=== PATIENT | male | born 1955 | race Caucasian/White ===

== ENCOUNTER → 2019-06-02 | Outpatient (CLI) | payer MEDICARE | LOC: GMAE 14:50 | PROVIDERS: ATTEND Family Medicine | DX: R53.83 Other fatigue (principal); Z79.899 Other long term (current) drug therapy ==

== ENCOUNTER → 2019-07-18 | Outpatient (CLI) | payer MEDICARE | LOC: GMAE 10:37 | PROVIDERS: ATTEND Family Medicine | DX: Z12.5 Encounter for screening for malignant neoplasm of prostate (principal); Z79.899 Other long term (current) drug therapy; E78.2 Mixed hyperlipidemia | CPT/HCPCS: 84439; 84443; 84481; G0103 ==

== ENCOUNTER → 2020-03-29 | Outpatient (CLI) | payer MEDICARE | LOC: GMAJ 16:43 | PROVIDERS: ATTEND Family Medicine | DX: D50.9 Iron deficiency anemia, unspecified (principal); Z79.899 Other long term (current) drug therapy ==

== ENCOUNTER 2020-04-05 05:04 | Day surgery (SDC) | payer MEDICARE ==
[2020-04-05] MEDS ORDERED: LACTATED RINGERS 1,000 ML ONE (06:29)
[2020-04-05] MEDS ORDERED: PROPOFOL 200 MG/20 ML VIAL IV ONE (07:00)
[2020-04-05] MEDS ORDERED: LIDOCAINE 1% 10 ML VIAL INJ ONE (07:00)
[2020-04-05 12:37] VITALS: BP 125/73; TEMP 96.8; O2SAT 99
--- NOTE | 2020-04-05 13:11 | OP ---
DATE OF PROCEDURE: 04/05/20 PREOPERATIVE DIAGNOSIS: 1. Anemia. POSTOPERATIVE DIAGNOSIS: 1. Colon tumor at approximately 40 cm. PROCEDURE: 1. Colonoscopy with polyp excision of one polyp at 30 cm, snare excision of polyp at 4 cm and forceps biopsy of a large mass at 40 to 45 cm. SURGEON: Jeffery Jimenez MD ANESTHESIA: General. FINDINGS: The lesion was obstructing the lumen at approximately 40 cm. We were able to safely get around it. It was large, mucinous, lobulated. Once we got around, we got all the way to the cecum as identified be appendiceal orifice. PROCEDURE: General anesthesia was induced in the lateral position. Digital rectal exam was normal. The colonoscope was inserted without difficulty. There was some poor prep distally, but this cleared up. We noticed a couple of specs of blood, irrigated and we got to a mass. Photos were taken. It was mucinous, fleshy appearing. I could not see the base. We gently were able to get past it to normal lumen. Just prior to this, there was a small polyp that had a reddened appearance on part of it. This was removed with forceps. It was about 30 cm. After we passed the tumor, we went all the way to the cecum and upon withdrawal, encountered the tumor again at approximately 45 cm. We took a biopsy. It was mostly fleshy and mucinous. We could not reliably know we got a lot of tissue, but then upon withdrawal, it was either addition of the primary tumor or a second lesion in the same area and we took more biopsy. Upon retroflexion, a polyp was seen just inside the introitus. It was on a stalk. This was taken with the snare. There were no complications. The patient will be taken to the Recovery Room pending pathology results. I will order a CT scan in the meantime as well as get cardiac clearance in anticipation of likely need for surgery depending on final pathology. #[id number] [facility]
== END 2020-04-05 12:25 | disposition home or self-care (01) ==
LOC: AMB 05:04
PROVIDERS: ATTEND Surgery
DX: D64.9 Anemia, unspecified (principal); K62.0 Anal polyp; K63.5 Polyp of colon; D12.6 Benign neoplasm of colon, unspecified; I25.10 Atherosclerotic heart disease of native coronary artery without angina pectoris; J45.909 Unspecified asthma, uncomplicated; Z95.5 Presence of coronary angioplasty implant and graft; Z87.19 Personal history of other diseases of the digestive system; Z95.810 Presence of automatic (implantable) cardiac defibrillator; Z79.02 Long term (current) use of antithrombotics/antiplatelets; Z79.82 Long term (current) use of aspirin; Z79.899 Other long term (current) drug therapy
CPT/HCPCS: 00811; 45380; 45385; 88305; J3490; J7120

== ENCOUNTER → 2020-04-09 | Outpatient (CLI) | payer MEDICARE ==
--- NOTE | 2020-04-09 11:42 | CT ---
EXAM DESCRIPTION: Abdomen/Pelvis w/Contrast CLINICAL HISTORY: 64 years Male, COLON MASS TECHNIQUE: This exam was performed according to our departmental dose-optimization program, which includes automated exposure control, adjustment of the mA and/or kV according to patient size and/or use of iterative reconstruction technique. COMPARISON: None at time of initial interpretation. FINDINGS: Small bilateral pleural effusions. Cholelithiasis. Portal vein is patent. The liver is unremarkable. No suspicious hepatic lesion. No biliary dilatation. The spleen, pancreas and adrenal glands are unremarkable. Bilateral renal cysts. Symmetric renal parenchymal enhancement. No hydronephrosis. No urolithiasis. Unremarkable bladder. Scattered colonic diverticula. There is segmental masslike mural thickening at the splenic flexure of the colon spanning a distance of 8 cm. No evidence of bowel obstruction. 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 Normal appendix. No retroperitoneal or pelvic adenopathy. No fluid collection. No free air. Normal caliber abdominal aorta. Mild atherosclerotic disease. No acute or suspicious osseous abnormality. Scattered degenerative changes present. IMPRESSION: 1. Segmental masslike mural thickening at the splenic flexure of the colon worrisome for malignancy. Recommend correlation with colonoscopy. 2. Small bilateral pleural effusions. Electronically signed by: Connor Anderson MD 04/09/2020 11:40 AM CDT
== END ==
LOC: CT 08:06
PROVIDERS: ATTEND Surgery
DX: K63.89 Other specified diseases of intestine (principal); J90 Pleural effusion, not elsewhere classified

== ENCOUNTER 2020-05-02 13:00 | Inpatient (IN) | payer MEDICARE ==
--- NOTE | 2020-04-27 16:20 | RAD ---
EXAM DESCRIPTION: Chest,2 Views CLINICAL HISTORY: 65 years Male, preop clearance COMPARISON: No recent comparison FINDINGS: 2 views/radiographs Heart size and pulmonary vessels are within normal limits. There is no pneumothorax or pleural effusion. The lungs are clear bilaterally. The soft tissues are unremarkable. No acute osseous findings. Left chest wall pacemaker. IMPRESSION: No acute cardiopulmonary abnormality. Electronically signed by: Connor Anderson MD 04/27/2020 4:18 PM [facility]
[~2020-05-02 13:00] MED LIST: BUPIVACAINE 0.5% W/EPI 30 ML VIAL INJ ONE; DEXAMETHASONE INJ 10 MG/ML VIAL ONE; ELECTROLYTE-A 1,000 ML IVS ONE; FAMOTIDINE INJ 10 MG/ML VIAL IV ONE; HYDROmorphone HCL INJ 2 MG/ML VIAL IV ONE; HYDROmorphone HCL INJ 2 MG/ML VIAL ONE; LACTATED RINGERS 1,000 ML ONE; LIDOCAINE 1% 10 ML VIAL INJ ONE; MAGNESIUM SULFATE INJ 1 GM/2 ML VIAL ONE; METOCLOPRAMIDE HCL INJ 10 MG/2 ML VIAL ONE; MIDAZOLAM INJ 2 MG/2 ML VIAL ONE; MORPHINE SULFATE INJ 10 MG/ML VIAL IV PRN; PROPOFOL 200 MG/20 ML VIAL IV ONE; ROCURONIUM BROMIDE 10 MG/ML VIAL ONE; SODIUM CHLORIDE 0.9% (FLUSH) 10 ML SYG ONE; SODIUM CHLORIDE 0.9% 250ML 250 ML ONE; SODIUM CHLORIDE 0.9% 50 ML VIAL ONE; SODIUM CHLORIDE 0.9% 500ML 500 ML ONE; SUGAMMADEX SODIUM 200 MG/2 ML VIAL IV ONE; ePHEDrine SULF 50 MG/ML ONE; fentaNYL CITRATE INJ 50 MCG/ML 2 ML AMP IV ONE; fentaNYL CITRATE INJ 50 MCG/ML 2 ML AMP ONE; fentaNYL CITRATE INJ 50 MCG/ML 5 ML AMP ONE
--- NOTE | 2020-05-02 15:09 | OP ---
DATE OF PROCEDURE: 05/02/20 PREOPERATIVE DIAGNOSIS: 1. Near obstructing colon mass near splenic flexure. POSTOPERATIVE DIAGNOSIS: 1. Near obstructing colon mass near splenic flexure. PROCEDURE: 1. Laparoscopic converted to open extended left colectomy, 2. Control of splenic bleeding. SURGEON: Jeffery Jimenez MD ANESTHESIA: General. FINDINGS: After laparoscopic exploration and mobilization, the tumor was large, almost softball size, fixed up in the splenic flexure, adherent to the spleen as well as desmoplastic reaction and multiple adhesions near the spleen. A 3 cm by approximately 3 cm deep laceration was noted in the spleen which was controlled with topical measures. ESTIMATED BLOOD LOSS: See report, 500 in canister plus labs. PLAN: Admit. INDICATION: As stated. The patient had a good prep with no sign of obstruction. It was delayed a little bit due to COVID, but he was able to prep adequately. PROCEDURE: The patient was brought to the Operative Suite in supine position. General anesthesia was induced. He was prepped and draped in sterile fashion. 0.5% Marcaine was used at the incision sites. While maintaining upward traction, a brian was made inferior to the umbilicus. The Veress needle was introduced. The abdomen was insufflated to an appropriate level of CO2 gas. A 12 mm trocar was placed followed by the camera. There was no evidence of bleeding or bowel injury. Two additional 5 mm ports were placed in the subxiphoid and right midabdomen. We then scanned the abdomen. The patient was positioned steep head up and to the left. We found multiple omental adhesions to the pelvis and ultimately found that the cecum and appendix were in the left lower quadrant. We freed up the white line of Toldt going up to the tumor. Our marking of the tumor site was identified at the splenic flexure and then with the adhesions down in the pelvis, it was difficult to get the omentum up and over to free if from the colon, but we did get a window into the lesser sac and freed up the transverse colon. When we got close to the mass, it was fixed and very immobile. At this point, it was determined we were unable to proceed laparoscopically. The patient was opened. The Bookwalter was placed. We examined the adhesions that were stuck. They indeed went down into the left lower quadrant. Three were freed off what we identified as the cecum, which was adherent to the sigmoid colon. Once this was freed up, the appendix appeared normal. We were able to mobilize that over to the right side. We then continued our dissection at the white line of Toldt down into the sigmoid to mobilize the descending colon. We were then able to take the omentum off of the distal transverse colon and mobilize that up to the mass. Again, it was fixed inferiorly and posteriorly. We saw the spleen and were able to dissect through the adhesions getting the colon off the superior pole of the spleen with minimal oozing. To aid in our dissection, we then transected the colon distally near the dominant left vessel that was palpated and then got behind the colon, lifting up, going over to the mass and then conscious that we were stuck there in the spleen, we took a lot of care in this area and with the size of the mass, we carefully dissected off its posterior adhesions, bringing it down off the splenic flexure area and had it mobilized to the midabdomen. At this time, there was oozing from the spleen. After suction and packing it off for some time, addressing the colon and getting the proximal dissection near the middle colic vessel and transected the colon here and took the mesenteric vessels with the vessel sealer and removed the specimen, again, examined the spleen and there was about a 3 cm and approximately 3 cm deep laceration near the superior pole in the mid posterior body. There was blood in the area. Ultimately, the oozing did lead to 500 mL in the canister, but there was no brisk arterial bleeding. Fibrillar was placed in the retroperitoneal area where there was some oozing from the dissection of the mass as well as Fibrillar and some topical on the spleen where the laceration was. We then packed it off with laps and held direct pressure for at least 10 minutes. Upon retrieving those laps, there was still some oozing from a portion that did not have a Fibrillar on it. We suctioned. It did not appear to be brisk, so more Fibrillar was placed in this area and again it was packed off and observed. On the final removal of the packing, there was no welling of blood. We had suctioned some clots from above the spleen from the blood previously, but the Fibrillar was dark. A portion of it was still white and as we observed it for a while, there was no evidence of ongoing significant bleeding. Confident that the spleen was adequately controlled, we then went down and made our anastomosis. It was a [id number]. The stapled corners, antimesenteric were held up, were cut off. The Endo-ISIDRO-55 was used, placed in and fired, making the anastomosis. The internal was examined. There was no evidence of bleeding. It was then closed transversely, staggering the staple lines with a TA-60. We then closed the mesenteric defect with a running 3-0 Vicryl and upon the final examination of the spleen removing the 3 laps that had packed it, we again noted no ongoing bleeding and really no significant oozing. The Fibrillar was dark, but dry. At this point, lap and instrument counts were correct. We closed with a running 0 PDS suture. Given the blood loss and the initial hemoglobin of 10, he was transfused 1 unit. Fascia was closed. The skin was closed with staple and dressing applied. He was then awakened and taken to Recovery in stable condition to be observed. We will get serial hematocrits. #[id number] cc: Jeffery Cheatham MD [facility]
[2020-05-02] MEDS: MORPHINE SULFATE INJ 10 MG/ML VIAL IV PRN ×3 (16:06→21:32)
[2020-05-02] MEDS: cefOXitin SODIUM 1 GM in SODIUM CHL 0.9% 50ML MIN-BAG+ 50 ML IVPB SCH ×2 (16:07→23:54)
[2020-05-02] MEDS: KCL 20MEQ/D5 1/2NS 1,000 ML IVS PRN ×2 (16:07→23:54)
--- NOTE | 2020-05-02 17:54 | PN ---
DATE: 05/02/20 TIME: 5:43 PM FOLLOWUP POSTOPERATIVE SUBJECTIVE: The patient is post extended left colectomy with control of splenic bleeding. We are here following up hemoglobin and hematocrit. He got one unit of blood intraoperatively. Currently, he is doing well. OBJECTIVE: Heart rate is in the 60s. Blood pressure 110s/70s. She is having adequate urine output. LABORATORY: Followup hemoglobin 9.9. PLAN: At this point, the hemoglobin is stable. We still are anticipating some hemoglobin drop due to fluid shifts, but at this point, he looks very stable and there is no evidence of ongoing bleeding on exam. His abdomen is mildly tense with slight guarding from his surgery, but otherwise not distended. The wound is dry. Overall, it looks like he is doing well. We will continue serial H&Hs. #[id number] [facility]
[2020-05-02] MEDS ORDERED: ATORVASTATIN 20 MG TAB PO ONE (19:27)
[2020-05-02] MEDS ORDERED: CARVEDILOL 3.125 MG TAB ONE (19:27)
[2020-05-02] MEDS: ONDANSETRON INJ 4 MG/2 ML VIAL IV PRN (19:36)
[2020-05-02] MEDS: CARVEDILOL 3.125 MG TAB PO SCH (20:42)
[2020-05-02] MEDS: ATORVASTATIN 20 MG TAB PO SCH (20:42)
[2020-05-03] MEDS: MORPHINE SULFATE INJ 10 MG/ML VIAL IV PRN ×6 (02:10→22:01)
[2020-05-03] MEDS ORDERED: CETIRIZINE HCL 10 MG TAB PO ONE (07:48)
[2020-05-03] MEDS ORDERED: AMIODARONE HCL 200 MG TAB ONE (07:48)
[2020-05-03] MEDS ORDERED: LOSARTAN POTASSIUM 25 MG TAB ONE (07:49)
[2020-05-03] MEDS: cefOXitin SODIUM 1 GM in SODIUM CHL 0.9% 50ML MIN-BAG+ 50 ML IVPB SCH (08:03)
--- NOTE | 2020-05-03 08:22 | CONS ---
SUPERVISING PHYSICIAN: Brandon Mckeon MD DATE OF CONSULTATION: 05/02/20 REASON FOR CONSULTATION: Postoperative colectomy. HISTORY OF PRESENT ILLNESS: This is a 65-year-old male patient who had a colon mass that was almost obstructing the right side of his abdomen. He actually requested Dr. Jimenez for operative intervention for a colectomy. He was admitted to the hospital today for laparoscopic colectomy to be performed by Dr. Jimenez. Intraoperatively, the mass was found to be so extensive that it had been converted to an extensive open colectomy. There was also some splenic bleeding intraoperatively and he received a unit of blood. He was admitted to the Floor postoperatively. PAST MEDICAL HISTORY: 1. Seasonal allergies. 2. Asthma. 3. Myocardial infarction x1 in 2016. 4. Coronary artery disease with stent placement. PAST SURGICAL HISTORY: 1. Coronary artery stent placement. 2. Colon resection. 3. Left knee surgery. OUTPATIENT MEDICATIONS: 1. Aspirin. 2. Ferrous gluconate. 3. Multivitamins with minerals. 4. Albuterol. 5. Amiodarone. 6. Atorvastatin. 7. Carvedilol. 8. Cetirizine. 9. Breo Ellipta. 10. Losartan. ALLERGIES: CELEXA, PENICILLIN. FAMILY HISTORY: Coronary artery disease. SOCIAL HISTORY: He previously smoked cigars and quit in 2014. He denies any ETOH or illicit drug use. REVIEW OF SYSTEMS: Negative except as per history of present illness. PHYSICAL EXAMINATION: VITAL SIGNS: Temperature 97.6, heart rate 60, blood pressure 89/64. It is now up to 105/69. Respiratory rate 15, O2 saturation 98% on 2 liters nasal cannula. GENERAL: This is a 65-year-old male patient who is lying in his hospital bed. He is in no acute distress. He is still quite lethargic postoperatively. NECK: Supple without mass. RESPIRATORY: Essentially clear to auscultation bilaterally. CARDIOVASCULAR: Regular rate and rhythm. GASTROINTESTINAL: He has an abdominal dressing in place. EXTREMITIES: No cyanosis, clubbing or edema. NEUROLOGIC: He is lethargic, but he answers questions appropriately and is oriented times three. SKIN: Warm and dry. LABORATORY: WBCs 10.6, hemoglobin 10.2, hematocrit 31.8 prior to surgery. Immediately postoperatively, hemoglobin was 9.2 and hematocrit 29.2 after one unit of blood and his 4 o'clock H&H was 9.9 and 31.4. Sodium 134, potassium 3.9, chloride 100 RADIOLOGY: Chest x-ray shows no acute cardiopulmonary abnormality. OPERATIVE REPORTS: Per the EMR. IMPRESSION: 1. Near obstructing colon mass status post laparoscopic converted to open extended left colectomy with control of splenic bleeding, performed by Jeffery Jimenez MD, postoperative day #0. 2. Asthma without exacerbation. 3. Coronary artery disease with stent placement in the past. 4. Myocardial infarction x1 in 2016. 5. Seasonal allergies. PLAN: We will continue present supportive care. Operative issues will be per Dr. Jeffery Jimenez, general surgeon. We will follow his recommendations. We will verify his home medications and follow his serial H&Hs. He does have one unit of blood that has been typed and crossed in the lab if needed. I encouraged him to get up in the hallways soon as Dr. Jimenez consents. Encourage good pulmonary hygiene. #[id number] [facility]
[2020-05-03] MEDS: AMIODARONE HCL 200 MG TAB PO SCH (08:47)
[2020-05-03] MEDS: CETIRIZINE HCL 10 MG TAB PO SCH (08:48)
[2020-05-03] MEDS: CARVEDILOL 3.125 MG TAB PO SCH (08:48)
[2020-05-03] MEDS: LOSARTAN POTASSIUM 25 MG TAB PO SCH (08:48)
[2020-05-03] MEDS: KCL 20MEQ/D5 1/2NS 1,000 ML IVS PRN ×2 (08:50→16:20)
--- NOTE | 2020-05-03 11:54 | PN ---
SUPERVISING PHYSICIAN: Barndon Mckeon MD DATE: 05/03/20 SUBJECTIVE: The patient has no complaints of any nausea right now. He cannot say whether or not he has any flatus, but does remember having any. He does have some abdominal discomfort with movement. OBJECTIVE: VITAL SIGNS: Blood pressure 131/76, heart rate 67, respiratory rate 18, temperature 98.9, oxygen saturation 95%. GENERAL: Mr. Lane is a 65-year-old male patient in no significant distress at this time. NEUROLOGIC: The patient is alert. LUNGS: Diminished in the bases, but otherwise clear to auscultation bilaterally. CARDIOVASCULAR: Regular rate and rhythm. Normal S1, S2. ABDOMEN: Mildly distended, but soft. Midline incision covered with a dressing. Some shadow with drainage noted. There is a little bit of tenderness on light palpation. I do not appreciate any active bowel sounds at this time. EXTREMITIES: Lower extremities with no edema. LABORATORY: CBC shows white count 22.3, hemoglobin 9.2, hematocrit 29.2, platelet count 288. Chemistry with elevated glucose of 317, otherwise unremarkable. ASSESSMENT: 1. Colon mass status post left colectomy, postoperative day #1. 2. Asthma without exacerbation. 3. Coronary artery disease with no evidence of acute complication. 4. Allergies. 5. Acute blood loss anemia. PLAN: This patient has an acceptable hemoglobin this morning. Recommend discontinuation of his Lee catheter as well as ambulation. We will defer to Dr. Jimenez for advancement of diet. So far, no significant nausea or vomiting, however, has not passed gas either. Frequent ambulation should assist with this as well. #[id number] [facility]
[2020-05-03] MEDS: (Fluticasone Furoate-Vilanterol [Breo Ellipta 100-25 Mcg PO SCH (12:00)
[2020-05-03] MEDS: ONDANSETRON INJ 4 MG/2 ML VIAL IV PRN ×2 (18:16→22:07)
[2020-05-04] MEDS: ATORVASTATIN 20 MG TAB PO SCH ×2 (00:46→20:53)
[2020-05-04] MEDS: CARVEDILOL 3.125 MG TAB PO SCH ×3 (00:46→20:53)
[2020-05-04] MEDS: KCL 20MEQ/D5 1/2NS 1,000 ML IVS PRN ×2 (00:50→11:49)
[2020-05-04] MEDS: MORPHINE SULFATE INJ 10 MG/ML VIAL IV PRN ×2 (06:01→12:05)
[2020-05-04] MEDS: ONDANSETRON INJ 4 MG/2 ML VIAL IV PRN (06:02)
[2020-05-04] MEDS ORDERED: FUROSEMIDE INJ 40 MG/4 ML VIAL IV ONE (07:51)
[2020-05-04] MEDS: MEROPENEM 1 GM in SODIUM CHL 0.9% 50ML MIN-BAG+ 50 ML IVPB SCH ×2 (09:57→17:00)
[2020-05-04] MEDS: CETIRIZINE HCL 10 MG TAB PO SCH (09:58)
[2020-05-04] MEDS: metroNIDAZOLE IV PREMIX 500MG 500 MG in PREMIX BAG 1 BAG IVPB SCH ×2 (09:58→17:00)
[2020-05-04] MEDS: AMIODARONE HCL 200 MG TAB PO SCH (09:58)
[2020-05-04] MEDS: LOSARTAN POTASSIUM 25 MG TAB PO SCH (09:58)
--- NOTE | 2020-05-04 10:13 | RAD ---
EXAM: Chest,1 View INDICATION: 65 years Male, shortness of breath. Reported history of recent colectomy 2 days ago. COMPARISON: 2 views of the chest 04/27/2020 FINDINGS: Single view of the chest was performed. Heart size is more prominent than on the prior examination of 04/27/2020, most likely due to image technique/projection. Stable pacemaker/AICD leads. Low lung volumes. Hazy opacification in the left lung base may represent atelectasis versus infiltrate. Probable small left pleural effusion. No pneumothorax. The osseous structures are intact. Crescentic lucency is noted beneath the right hemidiaphragm, compatible with pneumoperitoneum likely related to recent reported surgery. IMPRESSION: 1. Hazy left lung base opacification may represent atelectasis or infiltrate. 2. Probable small left pleural effusion. 3. Crescentic lucency beneath the right hemidiaphragm is compatible with pneumoperitoneum, likely related to reported recent surgery. Findings were discussed with ODETTE Benson at 1011 hours 05/04/2020. Electronically signed by: Lisset Morillo MD 05/04/2020 10:11 AM [facility]
[2020-05-04] MEDS: ALBUTEROL INHALER 64 PUFF/8GM INH PRN (10:23)
[2020-05-04] MEDS: (Fluticasone Furoate-Vilanterol [Breo Ellipta 100-25 Mcg PO SCH (10:23)
[2020-05-04] MEDS ORDERED: guaiFENesin ER TAB 600 MG TAB PO SCH (10:30)
[2020-05-04] MEDS ORDERED: KCL 20MEQ/D5 1/2NS 1,000 ML IVS ONE (11:22)
[2020-05-04] MEDS ORDERED: ACETAMINOPHEN 325 MG TAB ONE (11:58)
[2020-05-04] MEDS: ACETAMINOPHEN 325 MG TAB PO PRN (12:10)
--- NOTE | 2020-05-04 13:18 | PN ---
SUPERVISING PHYSICIAN: Brandon Mckeon MD DATE: 05/04/20 SUBJECTIVE: The patient feels quite short of breath this morning. He is in respiratory distress. He does not feel nauseated right now. He has taken some antiemetics. OBJECTIVE: VITAL SIGNS: Blood pressure 114/72, heart rate 77, respiratory rate 22, temperature 100.6, oxygen saturation 97%. GENERAL: Mr. Lane is a 65-year-old male patient who is in mild respiratory distress currently. NEUROLOGIC: The patient is alert. LUNGS: Diminished in the bases with bibasilar rales. CARDIOVASCULAR: Regular rate and rhythm. Normal S1, S2. ABDOMEN: Soft, but somewhat distended. Decreased bowel sounds. EXTREMITIES: Lower extremities with no edema. LABORATORY: CBC shows white count 26.9 with 6% bands, hemoglobin 8.3 today. Sodium 133, potassium 4.9, chloride 99, CO2 27, BUN 9, creatinine 1.0, glucose 135, calcium 7.8. RADIOLOGY: Chest x-ray with some bibasilar atelectasis. Slight left pleural effusion. There was noted to be some lucency below the right hemidiaphragm consistent with mild pneumoperitoneum, however, he did have a surgery the day before yesterday. ASSESSMENT: 1. Colon mass status post left colectomy, postoperative day #2. 2. Asthma without exacerbation. 3. Coronary artery disease with no evidence of acute complication. 4. Acute blood loss anemia. 5. Worsened leukocytosis with fever. PLAN: Today, he has increase in his white blood cell count as well as some bands in addition to fever. I discussed with Dr. Jimenez and we are going to start him on empiric antibiotics with Merrem and Flagyl in addition to getting a CT scan of his abdomen and pelvis to ensure there is no obvious infectious source. Additionally, we got a chest x-ray because he has some rales. I have given him some Lasix as well. When his fever is greater than 101, we will do some cultures. We will continue all other medications at this time. #[id number] [facility]
--- NOTE | 2020-05-04 13:23 | CT ---
EXAM DESCRIPTION: Abdomen/Pelvis w/Contrast CLINICAL HISTORY: fever with leukocytosis COMPARISON: April 09, 2020 TECHNIQUE: Postcontrast CT images of the abdomen and pelvis are obtained using standard imaging protocol. This exam was performed according to our departmental dose-optimization program, which includes automated exposure control, adjustment of the mA and/or kV according to patient size and/or use of iterative reconstruction technique . FINDINGS: Visualized lower chest shows small left pleural effusion with enhancing compressive atelectasis in the left lower lobe increased from previous. Interval resolution of right pleural effusion seen on previous exam with increased infiltrate and mild air bronchograms in the right lower lobe which could represent atelectasis versus aspiration or developing pneumonia. Cardiac pacemaker leads are seen in place. The liver, spleen, pancreas, and adrenal glands are unremarkable. Contrast in the gallbladder likely related to previous IV contrast procedure. The gallstone seen on previous exam are not well identified. Mild atherosclerotic disease. Cortical cysts involving the upper pole of both kidneys with complex cyst on the right are again seen. No hydronephrosis or ureteral obstruction. Urinary bladder poorly distended and unremarkable. Prostate mildly enlarged. Bilateral fat-containing inguinal hernias. Stomach poorly distended and unremarkable. No small bowel obstruction. Interval postsurgical changes from resection of a portion of the colon at the sigmoid flexure with surgical anastomosis identified. Fluid collection in the left paracolic gutter superior to the surgical anastomosis in the region of resected bowel measures at least 6.9 x 3.9 x 6.7 cm. Focal areas of air in the mesenteric fat with central increased attenuation anterior and superior to this fluid collection just inferior to the spleen and to the left of the tail the pancreas likely represents hemostatic agent utilized during surgery after removal of the mass which was adhered to the spleen. Scattered foci of free air throughout the upper abdomen are seen. Small amount of fluid around the spleen. Small amount of fluid below the anterior left diaphragm adjacent to the stomach measuring 3.4 x 1.6 cm. Metallic attenuation possible foreign body in a loop of bowel in the left midabdomen is incidentally noted. Malrotation is seen with duodenal sweep not extending to the left abdomen and most of the colon identified in the left abdomen. The appendix is seen to the right of midline on images 55 through 60. IMPRESSION: Interval postsurgical changes with resection of colon mass at the splenic flexure region. Air and fluid collection in the left upper quadrant of the abdomen in the area of resected colon could represent postop hematoma or seroma versus abscess. Small amount of fluid below the left hemidiaphragm may be reactive versus small abscess. Free air in the abdomen may be related to recent surgery. No air or fluid collection is seen around the surgical anastomosis. Small left pleural effusion with left lower lobe atelectasis. Right lower lobe atelectasis or infiltrate is seen. Metallic density radiopaque foreign body probably in the colon on the left midabdomen of unknown etiology or clinical significance if any. Other findings are stable from previous. Findings on this exam were called to Dr. Benson at 05/04/2020 1:21 PM [facility] [employer] by Shiva Linda MD. Electronically signed by: Jacob Linda MD 05/04/2020 1:22 PM [facility]
--- NOTE | 2020-05-04 13:33 | PN ---
SUPERVISING PHYSICIAN: Brandon Mckeon MD DATE: 05/04/20 Postoperative day #2, left colectomy, control of bleeding of the spleen. SUBJECTIVE: The patient has is complaining of some shortness of breath which has been relieved with diuretics. There is a known history of congestive heart failure and normal postoperative abdominal pain. OBJECTIVE: VITAL SIGNS: T-max 101, heart rate in the 70s, blood pressure 110s to 120s/70s. Oxygen saturation 97% on nasal cannula. GENERAL: He looks comfortable and in no distress. HEENT: Normal. CHEST: Has some basilar crackles. HEART: Regular rate. ABDOMEN: Slightly softer than yesterday, I think from better pain control. Dressing remains dry. He has had no bowel movements, no flatus. I&O: Total 3.3 with adequate urine output. Lee catheter has been removed. LABORATORY: White count 26, hemoglobin 8.3 from postoperative of 9.2. Platelet count 296, there are 6 bands. BNP is unremarkable. Due to his temperature spike and known bleeding around the spleen, we got a baseline CT scan and I just looked at it. It reads some fluid around the spleen as well as the fibular anticlotting in the fibric used in the area which is as expected, otherwise, the anastomosis looks clean. There are no other abnormalities but for small pleural effusion and some atelectasis bilaterally. ASSESSMENT/PLAN: Postoperative day #2 left colectomy. PLAN: Will try to get better pain control and he will be monitored for his fevers and just slowly advance and be given liquids. #[id number] [facility]
[2020-05-04] MEDS: fentaNYL CITRATE INJ 50 MCG/ML 2 ML AMP IV PRN ×4 (13:48→20:54)
[2020-05-05] MEDS: metroNIDAZOLE IV PREMIX 500MG 500 MG in PREMIX BAG 1 BAG IVPB SCH ×3 (00:35→16:01)
[2020-05-05] MEDS: ACETAMINOPHEN 325 MG TAB PO PRN (01:49)
[2020-05-05] MEDS: fentaNYL CITRATE INJ 50 MCG/ML 2 ML AMP IV PRN (01:51)
[2020-05-05] MEDS: MEROPENEM 1 GM in SODIUM CHL 0.9% 50ML MIN-BAG+ 50 ML IVPB SCH ×3 (02:02→17:03)
[2020-05-05] MEDS: ALBUTEROL INHALER 64 PUFF/8GM INH PRN (08:44)
[2020-05-05] MEDS: (Fluticasone Furoate-Vilanterol [Breo Ellipta 100-25 Mcg PO SCH (08:44)
[2020-05-05] MEDS: AMIODARONE HCL 200 MG TAB PO SCH (10:03)
[2020-05-05] MEDS: ENOXAPARIN SODIUM 40 MG/0.4 ML SYG SUBCU SCH (10:03)
[2020-05-05] MEDS: CARVEDILOL 3.125 MG TAB PO SCH ×2 (10:04→20:43)
[2020-05-05] MEDS: CETIRIZINE HCL 10 MG TAB PO SCH (10:04)
[2020-05-05] MEDS: LOSARTAN POTASSIUM 25 MG TAB PO SCH (10:04)
[2020-05-05] MEDS: MORPHINE SULFATE INJ 10 MG/ML VIAL IV PRN ×3 (10:32→20:55)
--- NOTE | 2020-05-05 13:19 | PN ---
SUPERVISING PHYSICIAN: Brandon Mckeon MD DATE: 05/05/20 SUBJECTIVE: The patient says he feels better today than he did yesterday. His breathing is still okay. Belly still feels a little bit tight but no significant pain. He is passing a very small amount of gas but otherwise no significant nausea. OBJECTIVE: VITAL SIGNS: Blood pressure 117/65, heart rate 78, respiratory rate 18, temperature 98.4, oxygen saturation currently 94% on 2 liters via nasal cannula. GENERAL: Mr. Lane is a 65-year-old male patient in no active distress. NEUROLOGIC: The patient is alert. LUNGS: Diminished in the bases, the rales that were heard yesterday are no longer there. CARDIOVASCULAR: Regular rate and rhythm. Normal S1, S2. ABDOMEN: Soft, slightly distended. He does firm his stomach up whenever you try to palpate but is soft for the most part. He does have very hypoactive bowel sounds. EXTREMITIES: Lower extremities with no edema. LABORATORY: White count 24.7. There are no longer any bands, hemoglobin 8.9. Hematocrit 27.9, platelet count 312. Chemistry - sodium 129, potassium 4.1, chloride 93, CO2 of 28, BUN 12, creatinine 1.04, CRP 30.2. ASSESSMENT: 1. Colon mass status post left colectomy, postoperative day #3. 2. Asthma without exacerbation. 3. Coronary artery disease with no evidence of acute complication. 4. Acute blood loss anemia, improved. 5. Worsened leukocytosis. PLAN: The patient still has a mild fever over the last 24 hours. He is started on antibiotics. CT scan had shown that around the spleen area where the hemorrhage had occurred, there could potentially be a fluid collection, seroma versus hematoma, but there was no anastomotic leak. Clinically, the patient looks better than he did yesterday. We will continue with the antibiotics and monitor the cultures. #[id number] [facility]
[2020-05-05] MEDS: KCL 20MEQ/D5 1/2NS 1,000 ML IVS PRN (16:01)
[2020-05-05] MEDS ORDERED: FUROSEMIDE INJ 40 MG/4 ML VIAL ONE (16:25)
[2020-05-05] MEDS ORDERED: FUROSEMIDE INJ 40 MG/4 ML VIAL IV ONE (16:30)
[2020-05-05] MEDS: ATORVASTATIN 20 MG TAB PO SCH (20:43)
[2020-05-06] MEDS: metroNIDAZOLE IV PREMIX 500MG 500 MG in PREMIX BAG 1 BAG IVPB SCH ×2 (00:15→09:31)
[2020-05-06] MEDS: MEROPENEM 1 GM in SODIUM CHL 0.9% 50ML MIN-BAG+ 50 ML IVPB SCH ×2 (01:38→10:27)
[2020-05-06] MEDS: MORPHINE SULFATE INJ 10 MG/ML VIAL IV PRN ×3 (02:00→10:32)
[2020-05-06] MEDS ORDERED: PANTOPRAZOLE SODIUM IV 40 MG VIAL ONE (03:38)
[2020-05-06] MEDS ORDERED: PANTOPRAZOLE SODIUM IV 40 MG VIAL IV SCH (06:30)
[2020-05-06] MEDS: LOSARTAN POTASSIUM 25 MG TAB PO SCH (09:27)
[2020-05-06] MEDS: CARVEDILOL 3.125 MG TAB PO SCH ×2 (09:27→20:12)
[2020-05-06] MEDS: AMIODARONE HCL 200 MG TAB PO SCH (09:28)
[2020-05-06] MEDS: CETIRIZINE HCL 10 MG TAB PO SCH (09:28)
[2020-05-06] MEDS: ENOXAPARIN SODIUM 40 MG/0.4 ML SYG SUBCU SCH (09:30)
[2020-05-06] MEDS: ALBUTEROL INHALER 64 PUFF/8GM INH PRN (09:52)
[2020-05-06] MEDS: (Fluticasone Furoate-Vilanterol [Breo Ellipta 100-25 Mcg PO SCH (09:52)
[2020-05-06] MEDS ORDERED: HYDROcodone 5MG/APAP 325MG 1 EA TAB PO PRN (16:10)
[2020-05-06] MEDS ORDERED: HYDROcodone 5MG/APAP 325MG 1 EA TAB ONE (16:20)
[2020-05-06] MEDS: ACETAMINOPHEN 325 MG TAB PO PRN (16:33)
--- NOTE | 2020-05-06 16:35 | PN ---
DATE: 05/06/20 Postoperative day #4, left colectomy. SUBJECTIVE: The patient is having less pain today. He has been up and around quite a bit and has just aggravated pain, but overall he is feeling much better. He is having no shortness of breath or dyspnea. He has passed some gas. OBJECTIVE: VITAL SIGNS: He is afebrile. Vital signs stable normal. Oxygen saturation 97% on 2 liters. GENERAL: He alert and oriented, no distress. CHEST: Clear bilaterally. HEART: Regular. ABDOMEN: Soft today. There is no guarding or rebound. Dressing is dry. EXTREMITIES: No edema. LABORATORY: White count is coming down and is 20 now. Electrolytes unremarkable. ASSESSMENT/PLAN: Overall, he is doing well and progressing. We will hold his IV as it infiltrated. He is taking adequate good urine intake. Good urine put, so we will hold his IV. We will plan on advancing his diet slowly in the next day or two. #[id number] [facility]
--- NOTE | 2020-05-06 17:02 | PN ---
SUPERVISING PHYSICIAN: Brandon Mckeon MD DATE: 05/06/20 SUBJECTIVE: The patient is sitting on the side of the bed. Today, he is feeling much better than he did yesterday. He has actually been up walking in the hallways. He is encouraged to continue with his incentive spirometry. OBJECTIVE: VITAL SIGNS: Temperature 99.2, heart rate 64. Blood pressure 135/72, respiratory rate 20, oxygen saturation 97% on 2 liters nasal cannula. LUNGS: Essentially clear to auscultation bilaterally. CARDIOVASCULAR: Regular rate and rhythm. NEUROLOGIC: Awake, alert, and oriented x3. LABORATORY: WBC 20,500. Hemoglobin 8.7, hematocrit 26.9. Sodium 133, potassium 2.7, chloride 93, calcium 7.5, magnesium 1.8. C-reactive protein 28.2. Preliminary blood cultures show no growth after 48 hours. Urine culture shows o growth after 48 hours. All other labs and films have been reviewed via the EMR. ASSESSMENT: 1. Colon mass status post left colectomy, postoperative day #4. 2. Asthma without exacerbation. 3. Coronary artery disease with no evidence of acute complication. 4. Acute blood loss anemia that has improved. 5. Worsened leukocytosis. PLAN: Operative issues will be per Dr. Jimenez. He has recommended that we discontinue all antibiotics, His IV infiltrated earlier so we will discontinue all his IV medications. I have given him some Tylenol #[address] Jimenez also recommended that he be assisted with showering and to continue on clear liquids. Orders for lab for in the morning. Will follow recommendations per Dr. Jimenez and follow and treat as needed. #[id number] [facility]
[2020-05-06] MEDS: ATORVASTATIN 20 MG TAB PO SCH (20:12)
[2020-05-06] MEDS: ACETAMINOPHEN W/ COD #4 TAB 1EA TAB PO PRN (20:21)
[2020-05-07] MEDS: ACETAMINOPHEN 325 MG TAB PO PRN (04:04)
[2020-05-07] MEDS: ACETAMINOPHEN W/ COD #4 TAB 1EA TAB PO PRN ×4 (07:15→23:53)
[2020-05-07] MEDS: (Fluticasone Furoate-Vilanterol [Breo Ellipta 100-25 Mcg PO SCH (08:00)
[2020-05-07] MEDS: CARVEDILOL 3.125 MG TAB PO SCH ×2 (08:09→21:05)
[2020-05-07] MEDS: ENOXAPARIN SODIUM 40 MG/0.4 ML SYG SUBCU SCH (08:09)
[2020-05-07] MEDS: AMIODARONE HCL 200 MG TAB PO SCH (08:10)
[2020-05-07] MEDS: LOSARTAN POTASSIUM 25 MG TAB PO SCH (08:10)
[2020-05-07] MEDS: CETIRIZINE HCL 10 MG TAB PO SCH (08:10)
[2020-05-07] MEDS ORDERED: POTASSIUM CHLORIDE ELIXIR 20 MEQ/15 ML UD PO ONE (08:22)
--- NOTE | 2020-05-07 19:08 | PN ---
SUPERVISING PHYSICIAN: Allison Alexis MD DATE: 05/07/20 SUBJECTIVE: The patient is sitting on the side of the bed. He continues to improve although he is somewhat hungry. I discussed his low hemoglobin today and that we would recheck it and follow Dr. Jimenez's recommendations. OBJECTIVE: VITAL SIGNS: Temperature 99, heart rate 60, blood pressure 104/64, respiratory rate 18, oxygen saturation 96% on room air. LUNGS: Essentially clear to auscultation bilaterally. CARDIOVASCULAR: Regular rate and rhythm. NEUROLOGIC: Awake, alert, and oriented x3. LABORATORY: WBCs 16,300, hemoglobin 7.8, hematocrit 24.3. His repeat were hemoglobin 8.3 and hematocrit 26.2. Sodium slightly low at 134, potassium 3.4. Calcium 7.5, magnesium 1.9. C-reactive protein improved to 22.4. All other labs and films have been reviewed via the EMR. ASSESSMENT: 1. Colon mass status post left colectomy, postoperative day #5. 2. Asthma without exacerbation. 3. Coronary artery disease with no evidence of acute complication. 4. Acute blood loss anemia, improved. 5. Leukocytosis, slowly improving. PLAN: Operative issues will be per Dr. Jeffery Jimenez. He has advanced his diet to full liquid. I will repeat labs for in the morning. I have given him some potassium supplementation. We will continue to monitor the patient closely and treat as needed. #[id number] [facility]
[2020-05-07] MEDS: ATORVASTATIN 20 MG TAB PO SCH (21:05)
[2020-05-08 05:01] VITALS: TEMP 98.2
[2020-05-08] MEDS: AMIODARONE HCL 200 MG TAB PO SCH (08:12)
[2020-05-08] MEDS: CARVEDILOL 3.125 MG TAB PO SCH (08:12)
[2020-05-08] MEDS: ACETAMINOPHEN W/ COD #4 TAB 1EA TAB PO PRN ×2 (08:12→14:08)
[2020-05-08] MEDS: LOSARTAN POTASSIUM 25 MG TAB PO SCH (08:12)
[2020-05-08] MEDS: CETIRIZINE HCL 10 MG TAB PO SCH (08:12)
[2020-05-08] MEDS: (Fluticasone Furoate-Vilanterol [Breo Ellipta 100-25 Mcg PO SCH (08:52)
[2020-05-08 14:52] VITALS: O2SAT 94
[2020-05-08 15:25] VITALS: BP 126/68
--- NOTE | 2020-05-09 09:41 | DS ---
SUPERVISING PHYSICIAN: Allison Alexis MD ADMISSION DIAGNOSIS: 1. Near obstructing colon mass status post laparoscopic converted to open extended left colectomy with control of splenic bleeding, performed by Jeffery Jimenez MD, general surgeon. 2. Asthma without exacerbation. 3. Coronary artery disease with stent placement in the past. 4. Myocardial infarction x1 in 2016. 5. Seasonal allergies. DISCHARGE DIAGNOSIS: 1. Colon mass status post left colectomy, postoperative day #6, per Dr. Jeffery Jimenez, general surgeon. 2. Asthma without exacerbation. 3. Coronary artery disease with no evidence of acute complication. 4. Acute blood loss anemia, improved. 5. Leukocytosis, slowly improving. HISTORY OF PRESENT ILLNESS: This is a 65-year-old male patient who had a colon mass that was almost obstructing the right side of his abdomen. He requested Dr. Jimenez for operative intervention for a colectomy. He was admitted to the hospital for laparoscopic colectomy to be performed by Dr. Jimenez. Intraoperatively, the mass was found to be so extensive that it had been converted to an extensive open colectomy. There was also some splenic bleeding intraoperatively and he received a unit of blood. He was admitted to the Floor postoperatively in stable condition. HOSPITAL COURSE: The patient was admitted in stable condition and made NPO. Dr. Jeffery Jimenez, general surgeon, followed him postoperatively and we followed his recommendations. His home medications were restarted once he was allowed to eat. We did do initial serial H&Hs to monitor for any blood loss. His H&H initially stabilized. He did have one other incident of a low hemoglobin yesterday, but it has stabilized without any blood transfusion. He had no nausea, but it took several days before he had passed flatus. His Lee catheter was discontinued. He remained NPO until bowel sounds were improved. His diet was advanced to clear liquid. He initially was on no antibiotics initially. He did spike a temperature and had Merrem and Flagyl added. He did eventually lose his IV site and it was felt it would not be restarted. All IV antibiotics were discontinued. The patient was taken fluids without any problems. Today, his diet was advanced to full liquid. He tolerated it well and today he will be discharged home in stable condition. LABORATORY: White blood cell count went as high as 26,900 and today is 15,900. Hemoglobin and hematocrit were 10.2 and 31.8. They did get as low at 7.8 and 24.3, but 6 hours after, his hemoglobin was 8.3 and hematocrit 26.2 and today are 8.2 and 24.7. His sodium was slightly low at 129 and today is 133. Potassium was as low as 3.4. He received potassium supplementation and today it is 3.6. BUN and creatinine stable at 11 and 0.85. Calcium was as low at 7.5 and today is 7.6. Magnesium remained stable at 1.9. C-reactive protein initially was 30.2 and yesterday was 22.4. MICROBIOLOGY: Preliminary blood cultures showed no growth after 4 days. Urine culture showed no growth after 48 hours. RADIOLOGY: His radiology reports are per the EMR. DISCHARGE PLAN: The patient will be discharged home in stable condition. He is to continue full liquid diet and advance his diet as instructed by Dr. Jimenez. He is to increase his activity as tolerated. He has a followup appointment with Dr. Jimenez on 05/14/20 at 10:30 AM. In addition to his routine medications, he is to have acetaminophen with codeine #4. [facility] was consulted and there were no issues found. He is to return to the hospital or followup with Dr. Jimenez for any problems or complications. DISCHARGE MEDICATIONS: 1. Albuterol. 2. Carvedilol. 3. Cetirizine. 4. Aspirin. 5. Breo. 6. Ferrous gluconate. 7. Amiodarone. 8. Losartan. 9. Multivitamins with minerals. 10. Lipitor. 11. Acetaminophen with codeine. #[id number] [facility]
== END 2020-05-08 15:30 | disposition home or self-care (01) | DRG 330 ==
LOC: AMB 13:00 → MS 13:10 → UNDOADMIN 13:10 → MS 05-03 13:10 → UNDOADMIN 05-06 16:52 → MS 05-06 16:52 → UNDODISIN 05-08 15:30
PROVIDERS: ADMIT Surgery; ATTEND Nurse Practitioner Acute Care
PROC: 0W3H0ZZ Control Bleeding in Retroperitoneum, Open Approach (ICD-10-PCS; 2020-05-02)
PROC: 30233N1 Transfusion of Nonautologous Red Blood Cells into Peripheral Vein, Percutaneous Approach (ICD-10-PCS; 2020-05-02)
PROC: 0DTG0ZZ Resection of Left Large Intestine, Open Approach (ICD-10-PCS; principal; 2020-05-02 08:17)
PROC: BW211ZZ Computerized Tomography (CT Scan) of Abdomen and Pelvis using Low Osmolar Contrast (ICD-10-PCS; 2020-05-04)
DX: C18.5 Malignant neoplasm of splenic flexure (principal); D62 Acute posthemorrhagic anemia; D78.11 Accidental puncture and laceration of the spleen during a procedure on the spleen; E87.6 Hypokalemia; J45.909 Unspecified asthma, uncomplicated; I10 Essential (primary) hypertension; J30.2 Other seasonal allergic rhinitis; I25.10 Atherosclerotic heart disease of native coronary artery without angina pectoris; I25.2 Old myocardial infarction; Z95.5 Presence of coronary angioplasty implant and graft; Z95.810 Presence of automatic (implantable) cardiac defibrillator; Z88.0 Allergy status to penicillin; Z88.8 Allergy status to other drugs, medicaments and biological substances; Z79.82 Long term (current) use of aspirin; Z79.02 Long term (current) use of antithrombotics/antiplatelets; Z87.891 Personal history of nicotine dependence; Z79.899 Other long term (current) drug therapy; Z53.31 Laparoscopic surgical procedure converted to open procedure; Y83.6 Removal of other organ (partial) (total) as the cause of abnormal reaction of the patient, or of later complication, without mention of misadventure at the time of the procedure; Y92.234 Operating room of hospital as the place of occurrence of the external cause

== ENCOUNTER → 2020-05-14 | Outpatient (CLI) | payer MEDICARE | LOC: LAB.O 11:21 | PROVIDERS: ATTEND Surgery | DX: D50.9 Iron deficiency anemia, unspecified (principal) ==

== ENCOUNTER → 2020-05-28 | Outpatient (CLI) | payer MEDICARE | LOC: GMAJ 16:53 | PROVIDERS: ATTEND Family Medicine | DX: D50.9 Iron deficiency anemia, unspecified (principal) ==

== ENCOUNTER → 2020-06-04 | Outpatient (CLI) | payer MEDICARE ==
--- NOTE | 2020-06-04 16:42 | CT ---
EXAM DESCRIPTION: Chest w/Contrast : Computed Tomography. CLINICAL HISTORY: 65 years Male HEART FAILURE COMPARISON: CT abdomen and pelvis May 04, 2020 TECHNIQUE: Spiral-axial scans at 5.0 mm intervals through the lungs and thorax with IV contrast. 2.5 x 5.0 mm lung algorithm axial reconstructions. Coronal and sagittal 2.0 Mm reconstructions. No adverse reactions. Total Exam DLP: 606 mGy-cm. This exam was performed according to our departmental dose-optimization program which includes automated exposure control, adjustment of the mA and/or kV according to patient size and/or use of iterative reconstruction technique; to reduce radiation dose to as low as reasonably achievable (ALARA). Nodule measurements under 10 mm are given as mean value of 3 axes diameters. FINDINGS: Lungs and large airways: Left lower lobe atelectasis and volume loss. Heart shifting to the left. Minimal atelectasis in the inferior lingula. Minimal pleural parenchymal scarring inferior right middle lobe and posterior recess of the right lower lobe. This has decreased since the prior abdominal CT. Calcified nodule posterior lateral lingula abutting the left major fissure. No abnormal pulmonary nodules.. Pleural spaces: Mild to moderate left effusion, also seen on the prior CT abdomen. Right effusion has resolved since the prior CT abdomen. Mediastinum and Rere: Small lymph nodes. No dominant soft tissue mass. Great vessels and Heart: Coronary artery stents in the left main and LAD branches. Pacing wires in the right atrium and right ventricle. Soft tissues of neck base, axillae, and chest wall: Pacemaker power pack anterior lateral left chest. Upper abdomen: Fluid collection with pockets of air abutting the spleen, left lateral abdominal wall in the peritoneal cavity. Also abutting the colon in the tail the pancreas. Lateral and inferior to the stomach. Osseous structures: Convex right upper thoracic spine. Arthrosis in the bilateral glenohumeral joints and also sternoclavicular joints. IMPRESSION: 1. Atelectasis and volume loss left lower lobe, with less atelectasis in the inferior lingula. Moderate effusion on the left with no air bubbles, or evidence of empyema. Decreased effusion on the right since the abdominal CT scan. No abnormal nodules in the lung. 2. Fluid collection abutting the spleen and left lateral peritoneal cavity containing air bubbles which is most likely an abscess. Electronically signed by: Vitor Stapleton MD 06/04/2020 4:41 PM [employer]
== END ==
LOC: CT 11:36
PROVIDERS: ATTEND Internal Medicine Hematology & Oncology
DX: I50.9 Heart failure, unspecified (principal); J98.11 Atelectasis; J90 Pleural effusion, not elsewhere classified; R18.8 Other ascites; J45.909 Unspecified asthma, uncomplicated; D50.9 Iron deficiency anemia, unspecified; I10 Essential (primary) hypertension; C18.9 Malignant neoplasm of colon, unspecified

== ENCOUNTER → 2020-06-27 | Outpatient (CLI) | payer MEDICARE | LOC: GMAJ 14:15 | PROVIDERS: ATTEND Family Medicine | DX: D50.9 Iron deficiency anemia, unspecified (principal) ==